=== PATIENT | male | born 1935 | race Asian ===

== ENCOUNTER 2019-07-03 08:48 | Emergency (ER) | payer OTHER, BC ==
[~2019-07-03] VITALS: Ht 165.1 cm; Wt 72.6 kg
[2019-07-03 08:49] VITALS: Ht 165.1 cm; Wt 72.6 kg
[2019-07-03 11:07] VITALS: BP 110/63
== END 2019-07-03 11:07 | disposition home or self-care (01) ==
LOC: ED 08:48
DX: M54.41 Lumbago with sciatica, right side (principal); I10 Essential (primary) hypertension; M10.9 Gout, unspecified
CPT/HCPCS: J1885